=== PATIENT | male | born 1990 | race Caucasian/White ===

== ENCOUNTER 2018-07-13 11:04 | Emergency (ER) | payer OTHER ==
[2018-07-13 11:18] VITALS: RESP 18
--- NOTE | 2018-07-13 12:10 | ED ---
Psych HPI - General Chief Complaint: Psychiatric Symptoms Stated Complaint: suicidal Time Seen by Provider: 07/13/18 11:25 Source: patient, EMS, RN notes reviewed, old records reviewed Mode of arrival: EMS - History of Present Illness Initial Comments: 28-year-old male presenting to complete a suicidal statement. Patient was brought in via police escort. Apparently Patient states that he wanted to leave this place permanent". Patient states that he was referring to his parents house. He states that his parents misconstrued his statement and thought that he was making a suicidal statement. Patient states that he has had a history of substance abuse. Recently started on Suboxone. - Related Data Home Medications Medication Instructions Recorded Confirmed Buprenorphine HCl/Naloxone HCl 1 film SL DAILY 07/13/18 07/13/18 [Suboxone 8 mg-2 mg Sl Film] Allergies Allergy/AdvReac Type Severity Reaction Status Date / Time amoxicillin Allergy Unknown Verified 07/13/18 11:20 Review of Systems ROS Statement: Those systems with pertinent positive or pertinent negative responses have been documented in the HPI. ROS Other: All systems not noted in ROS Statement are negative. Past Medical History Past Medical History: No Reported History History of Any Multi-Drug Resistant Organisms: None Reported Past Surgical History: No Surgical Hx Reported Past Psychological History: No Psychological Hx Reported Smoking Status: Current every day smoker Past Alcohol Use History: Rare Past Drug Use History: Heroin General Exam - General Exam Comments Initial Comments: This is a 28-year-old male. Alert and oriented. No significant distress. General: Well appearing, well nourished, in no distress. Oriented x 3, normal mood and affect . Ambulating without difficulty. Skin: Good turgor, no rash, unusual bruising or prominent lesions Hair: Normal texture and distribution. HEENT: Head: Normocephalic, atraumatic, no visible or palpable masses, depressions, or scaring. Eyes: Visual acuity intact, conjunctiva clear, sclera non-icteric, EOM intact, PERRL. Ears: EACs clear, TMs translucent & cone of light visualized. hearing intact. Nose: No external lesions, mucosa non-inflamed, septum and turbinates normal Mouth: Mucous membranes moist, no mucosal lesions. Teeth/Gums: No obvious caries or periodontal disease. No gingival inflammation or significant resorption. Pharynx: Mucosa non-inflamed, no tonsillar hypertrophy or exudate Neck: Supple, without lesions, bruits, or adenopathy, thyroid non-enlarged and non-tender Heart: No cardiomegaly or thrills; regular rate and rhythm, no murmur or gallop Lungs: Clear to auscultation and percussion Abdomen: Bowel sounds normal, no tenderness, organomegaly, masses, or hernia Back: Spine normal without deformity or tenderness, no CVA tenderness Rectal: Normal sphincter tone, no hemorrhoids or masses palpable Extremities: No amputations or deformities, cyanosis, edema or varicosities, peripheral pulses intact Musculoskeletal: Normal gait and station. No misalignment, asymmetry, crepitation, defects, tenderness, masses, effusions, decreased range of motion, instability, atrophy or abnormal strength or tone in the head, neck, spine, ribs , pelvis or extremities. Neurologic: CN 2-12 normal. Sensation to pain, touch, and proprioception normal. DTRs normal in upper and lower extremities. No pathologic reflexes. Psychiatric: Oriented X3, intact recent and remote memory, judgment and insight , normal mood and affect. Patient reports depression, denies suicidal ideation. Reports family made a mistake in his statement. Patient plans to start a new job. Limitations: no limitations Course Vital Signs 07/13/18 07/13/18 11:14 13:28 Temperature 98.4 F 98.2 F Pulse Rate 97 91 Respiratory 18 18 Rate Blood Pressure 134/90 132/68 O2 Sat by Pulse 98 98 Oximetry Medical Decision Making - Medical Decision Making 28-year-old male presents department with family for concern for suicidal ideation. Patient reports that he wanted to leave this place per me". He was referring to his family's house. Patient states that he has been doing substance abuse. Recent start Suboxone. He states he is nontender to return to heroin use. He reports he is plans for future once in a new job this week. Patient was evaluated by EPS. They deem the Patient suicidal. The Patient outpatient referrals for counseling services. Patient has close follow-up with his counselor discussed return parameters. Patient understand treatment plan will comply. - Lab Data Lab Results 07/13/18 Range/Units 12:01 Urine Opiates Screen Detected H (NotDetected) Ur Oxycodone Screen Not Detected (NotDetected) Urine Methadone Screen Not Detected (NotDetected) Ur Propoxyphene Screen Not Detected (NotDetected) Ur Barbiturates Screen Not Detected (NotDetected) U Tricyclic Antidepress Not Detected (NotDetected) Ur Phencyclidine Scrn Not Detected (NotDetected) Ur Amphetamines Screen Detected H (NotDetected) U Methamphetamines Scrn Detected H (NotDetected) U Benzodiazepines Scrn Not Detected (NotDetected) Urine Cocaine Screen Detected H (NotDetected) U Marijuana (THC) Screen Detected H (NotDetected) Disposition Clinical Impression: Depression Disposition: HOME SELF-CARE Condition: Good Instructions: Depression (ED) Additional Instructions: Patient is advised is followed with outpatient services. Return to emergency department if any alarming signs or symptoms occur. Is patient prescribed a controlled substance at d/c from ED?: No Referrals: None,Stated [Primary Care Provider] - 1-2 days Brielle De La Garza MD [STAFF PHYSICIAN] - 1-2 days Time of Disposition: 13:03
[2018-07-13 12:43] LABS: Amphetamine Screen,Urine Detected (NotDetected); Barbiturate Screen,Urine Not Detected (NotDetected); Benzodiazepines Screen,Urine Not Detected (NotDetected); Cocaine Screen,Urine Detected (NotDetected); Methadone Screen, Urine Not Detected (NotDetected); Opiate Screen,Urine Detected (NotDetected); Oxycodone Screen, Urine Not Detected (NotDetected); Phencyclidine Screen,Urine Not Detected (NotDetected); Tricyclic Antidepressant,Urine Not Detected (NotDetected); Urn Cannabinoid Scrn Detected (NotDetected)
[2018-07-13 13:30] VITALS: BP 132/68; PULSE 91; TEMP 98.2
== END 2018-07-13 13:28 | disposition home or self-care (01) ==
LOC: EC 11:04
DX: F32.9 Major depressive disorder, single episode, unspecified (principal); F11.10 Opioid abuse, uncomplicated; F17.200 Nicotine dependence, unspecified, uncomplicated; Z79.899 Other long term (current) drug therapy; Z88.0 Allergy status to penicillin
CPT/HCPCS: 80306; 82075; 99285

== ENCOUNTER 2020-01-23 21:11 | Emergency (ER) | payer OTHER ==
[2020-01-23 21:16] VITALS: BP 138/109; PULSE 136; RESP 18; TEMP 100.7
[2020-01-23] MEDS ORDERED: IBUPROFEN 600 MG TAB PO STA (21:19)
[2020-01-23] MEDS ORDERED: SODIUM CHLORIDE 0.9% 1,000 ML IV STA (21:19)
[2020-01-23] MEDS ORDERED: LORazepam 2 MG/ML INJ IV STA (21:19)
[2020-01-23] MEDS ORDERED: ACETAMINOPHEN TAB 500 MG TAB PO STA (21:19)
[2020-01-23] MEDS ORDERED: SODIUM CHLORIDE 0.9% 500 ML 500 ML IV STA (21:19)
--- NOTE | 2020-01-23 21:21 | ED ---
Psych HPI - General Chief Complaint: Psychiatric Symptoms Stated Complaint: mental health Time Seen by Provider: 01/23/20 21:18 Source: patient, police, RN notes reviewed, old records reviewed Mode of arrival: ambulatory - History of Present Illness Initial Comments: This is a 29-year-old male here for evaluation. Patient presents today for evaluation of possibly having hallucinations outpatient basis he is hearing voices is not feeling, or suicidal. At this point upon arrival here patient states he feels was not currently hearing voices looking for some follow-up resources regarding psychiatric illness. Patient does take psychiatric meds at her baseline. 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 No recent travel history or sick contacts. Patient does admit to be having a little fever lately and feeling a little while. MD Complaint: altered mental status, other (Hearing voices) Associated Psychiatric Symptoms: none, racing thoughts History of same: Yes Quality: constant Improves With: none Worsens With: none Context: recent drug abuse Associated Symptoms: denies other symptoms Treatments Prior to Arrival: placed on mental health hold If Self Harm: admits thoughts of self harm - Related Data Home Medications Medication Instructions Recorded Confirmed Buprenorphine HCl/Naloxone HCl 1 film SL DAILY 07/13/18 07/13/18 [Suboxone 8 mg-2 mg Sl Film] Allergies Allergy/AdvReac Type Severity Reaction Status Date / Time amoxicillin Allergy Unknown Verified 01/23/20 21:16 Review of Systems ROS Statement: Those systems with pertinent positive or pertinent negative responses have been documented in the HPI. ROS Other: All systems not noted in ROS Statement are negative. Past Medical History Past Medical History: No Reported History History of Any Multi-Drug Resistant Organisms: None Reported Past Surgical History: No Surgical Hx Reported Past Psychological History: Schizophrenia Smoking Status: Current every day smoker Past Alcohol Use History: Rare Past Drug Use History: Heroin General Exam Limitations: no limitations, altered mental status General appearance: alert, in no apparent distress, anxious, in distress Head exam: Present: atraumatic, normocephalic, normal inspection Eye exam: Present: normal appearance, PERRL, EOMI. Absent: scleral icterus, conjunctival injection, periorbital swelling ENT exam: Present: normal exam, mucous membranes dry Neck exam: Present: normal inspection. Absent: tenderness, meningismus, lymphadenopathy Respiratory exam: Present: normal lung sounds bilaterally. Absent: respiratory distress, wheezes, rales, rhonchi, stridor Cardiovascular Exam: Present: normal rhythm, tachycardia, normal heart sounds. Absent: systolic murmur, diastolic murmur, rubs, gallop, clicks GI/Abdominal exam: Present: soft, normal bowel sounds. Absent: distended, tenderness, guarding, rebound, rigid Extremities exam: Present: normal inspection, full ROM, normal capillary refill. Absent: tenderness, pedal edema, joint swelling, calf tenderness Back exam: Present: normal inspection Neurological exam: Present: alert, oriented X3, CN II-XII intact Psychiatric exam: Present: normal affect, normal mood Skin exam: Present: warm, dry, intact, normal color. Absent: rash Course Vital Signs 01/23/20 21:12 Temperature 100.7 F H Pulse Rate 136 H Respiratory 18 Rate Blood Pressure 138/109 O2 Sat by Pulse 99 Oximetry - Reevaluation(s) Reevaluation #1: 01/23/20 23:18 Medical recommended was reviewed Reevaluation #2: 01/23/20 23:18 Patient has no homicidal or suicidal Reevaluation #3: 01/23/20 23:18 Patient given discharge asking for resources Medical Decision Making - Medical Decision Making 29 Male here for evaluation patient having some auditory delusions. No homicidal or suicidal asking for some follow-up regarding his symptoms. Patient given follow-up and can be discharged home - Lab Data Result diagrams: 01/23/20 22:31 01/23/20 22:31 Lab Results 01/23/20 01/23/20 01/23/20 Range/Units 22:31 22:31 22:31 WBC 4.2 (3.8-10.6) k/uL RBC 4.96 (4.30-5.90) m/uL Hgb 14.8 (13.0-17.5) gm/dL Hct 45.1 (39.0-53.0) % MCV 91.0 (80.0-100.0) fL MCH 29.8 (25.0-35.0) pg MCHC 32.7 (31.0-37.0) g/dL RDW 12.9 (11.5-15.5) % Plt Count 159 (150-450) k/uL Neutrophils % 70 % Lymphocytes % 17 % Monocytes % 9 % Eosinophils % 1 % Basophils % 1 % Neutrophils # 3.0 (1.3-7.7) k/uL Lymphocytes # 0.7 L (1.0-4.8) k/uL Monocytes # 0.4 (0-1.0) k/uL Eosinophils # 0.0 (0-0.7) k/uL Basophils # 0.0 (0-0.2) k/uL Sodium 136 L (137-145) mmol/L Potassium 3.9 (3.5-5.1) mmol/L Chloride 100 (98-107) mmol/L Carbon Dioxide 26 (22-30) mmol/L Anion Gap 10 mmol/L BUN 11 (9-20) mg/dL Creatinine 0.77 (0.66-1.25) mg/dL Est GFR (CKD-EPI)AfAm >90 (>60 ml/min/1.73 sqM) Est GFR (CKD-EPI)NonAf >90 (>60 ml/min/1.73 sqM) Glucose 80 (74-99) mg/dL Plasma Lactic Acid Robert (0.7-2.0) mmol/L Calcium 9.3 (8.4-10.2) mg/dL Total Bilirubin 0.4 (0.2-1.3) mg/dL AST 28 (17-59) U/L ALT 12 (4-49) U/L Alkaline Phosphatase 65 (38-126) U/L Total Protein 7.6 (6.3-8.2) g/dL Albumin 4.4 (3.5-5.0) g/dL Urine Color Yellow Urine Appearance Clear (Clear) Urine pH 7.0 (5.0-8.0) Ur Specific Gibson 1.023 (1.001-1.035) Urine Protein 1+ H (Negative) Urine Glucose (UA) Negative (Negative) Urine Ketones 1+ H (Negative) Urine Blood Negative (Negative) Urine Nitrite Negative (Negative) Urine Bilirubin Negative (Negative) Urine Urobilinogen 4.0 (<2.0) mg/dL Ur Leukocyte Esterase Trace H (Negative) Urine RBC 1 (0-5) /hpf Urine WBC 1 (0-5) /hpf Ur Squamous Epith Cells <1 (0-4) /hpf Urine Bacteria Rare H (None) /hpf Urine Mucus Moderate H (None) /hpf Salicylates <1.0 mg/dL Urine Opiates Screen Not Detected (NotDetected) Ur Oxycodone Screen Not Detected (NotDetected) Urine Methadone Screen Detected H (NotDetected) Ur Propoxyphene Screen Not Detected (NotDetected) Acetaminophen <10.0 ug/mL Ur Barbiturates Screen Not Detected (NotDetected) U Tricyclic Antidepress Not Detected (NotDetected) Ur Phencyclidine Scrn Not Detected (NotDetected) Ur Amphetamines Screen Detected H (NotDetected) U Methamphetamines Scrn Detected H (NotDetected) U Benzodiazepines Scrn Not Detected (NotDetected) Urine Cocaine Screen Not Detected (NotDetected) U Marijuana (THC) Screen Detected H (NotDetected) Serum Alcohol <10 mg/dL 01/23/20 Range/Units 22:31 WBC (3.8-10.6) k/uL RBC (4.30-5.90) m/uL Hgb (13.0-17.5) gm/dL Hct (39.0-53.0) % MCV (80.0-100.0) fL MCH (25.0-35.0) pg MCHC (31.0-37.0) g/dL RDW (11.5-15.5) % Plt Count (150-450) k/uL Neutrophils % % Lymphocytes % % Monocytes % % Eosinophils % % Basophils % % Neutrophils # (1.3-7.7) k/uL Lymphocytes # (1.0-4.8) k/uL Monocytes # (0-1.0) k/uL Eosinophils # (0-0.7) k/uL Basophils # (0-0.2) k/uL Sodium (137-145) mmol/L Potassium (3.5-5.1) mmol/L Chloride (98-107) mmol/L Carbon Dioxide (22-30) mmol/L Anion Gap mmol/L BUN (9-20) mg/dL Creatinine (0.66-1.25) mg/dL Est GFR (CKD-EPI)AfAm (>60 ml/min/1.73 sqM) Est GFR (CKD-EPI)NonAf (>60 ml/min/1.73 sqM) Glucose (74-99) mg/dL Plasma Lactic Acid Robert 0.7 (0.7-2.0) mmol/L Calcium (8.4-10.2) mg/dL Total Bilirubin (0.2-1.3) mg/dL AST (17-59) U/L ALT (4-49) U/L Alkaline Phosphatase (38-126) U/L Total Protein (6.3-8.2) g/dL Albumin (3.5-5.0) g/dL Urine Color Urine Appearance (Clear) Urine pH (5.0-8.0) Ur Specific Gibson (1.001-1.035) Urine Protein (Negative) Urine Glucose (UA) (Negative) Urine Ketones (Negative) Urine Blood (Negative) Urine Nitrite (Negative) Urine Bilirubin (Negative) Urine Urobilinogen (<2.0) mg/dL Ur Leukocyte Esterase (Negative) Urine RBC (0-5) /hpf Urine WBC (0-5) /hpf Ur Squamous Epith Cells (0-4) /hpf Urine Bacteria (None) /hpf Urine Mucus (None) /hpf Salicylates mg/dL Urine Opiates Screen (NotDetected) Ur Oxycodone Screen (NotDetected) Urine Methadone Screen (NotDetected) Ur Propoxyphene Screen (NotDetected) Acetaminophen ug/mL Ur Barbiturates Screen (NotDetected) U Tricyclic Antidepress (NotDetected) Ur Phencyclidine Scrn (NotDetected) Ur Amphetamines Screen (NotDetected) U Methamphetamines Scrn (NotDetected) U Benzodiazepines Scrn (NotDetected) Urine Cocaine Screen (NotDetected) U Marijuana (THC) Screen (NotDetected) Serum Alcohol mg/dL Disposition Clinical Impression: Acute anxiety Disposition: HOME SELF-CARE Condition: Good Instructions (If sedation given, give patient instructions): Hallucinations (ED) Is patient prescribed a controlled substance at d/c from ED?: No Referrals: Felix Long DO [Primary Care Provider] - 1-2 days
[2020-01-23 22:47] LABS: Basophils % (A) 1 %; Eosinophils % (A) 1 %; HCT 45.1 % (39.0-53.0); HGB 14.8 gm/dL (13.0-17.5); Lymphocytes # (A) 0.7 k/uL (1.0-4.8); Lymphocytes % (A) 17 %; MCH 29.8 pg (25.0-35.0); MCHC 32.7 g/dL (31.0-37.0); Mean Platelet Volume 7.8; Monocytes # (A) 0.4 k/uL (0-1.0); Monocytes % (A) 9 %; Neutrophils % (A) 70 %; Platelet Count 159 k/uL (150-450); RBC 4.96 m/uL (4.30-5.90); RDW 12.9 % (11.5-15.5); WBC 4.2 k/uL (3.8-10.6)
[2020-01-23 22:50] LABS: Appearance,Urine Clear (Clear); Bacteria,Urine Rare /hpf; Bilirubin,Urine Negative (Negative); Blood,Urine Negative (Negative); Color,Urine Yellow; Glucose,Urine (UA) Negative (Negative); Ketones,Urine 1+ (Negative); Leukocyte Esterase,Urine Trace (Negative); Mucus,Urine Moderate /hpf; Nitrite,Urine Negative (Negative); Protein,Urine 1+ (Negative); RBC,Urine 1 /hpf (0-5); Specific Gravity,Urine 1.023 (1.001-1.035); Squamous Epithelial Cell,Urine <1 /hpf (0-4); WBC,Urine 1 /hpf (0-5)
--- NOTE | 2020-01-23 22:52 | XR ---
EXAMINATION TYPE: XR chest 2V DATE OF EXAM: 01/23/2020 COMPARISON: NONE HISTORY: Cough TECHNIQUE: FINDINGS: Heart and mediastinum are normal. Lungs are clear. Diaphragm is normal. Bony thorax appears normal. IMPRESSION: Normal chest.
[2020-01-23 23:03] LABS: Amphetamine Screen,Urine Detected (NotDetected); Barbiturate Screen,Urine Not Detected (NotDetected); Benzodiazepines Screen,Urine Not Detected (NotDetected); Cocaine Screen,Urine Not Detected (NotDetected); Methadone Screen, Urine Detected (NotDetected); Opiate Screen,Urine Not Detected (NotDetected); Oxycodone Screen, Urine Not Detected (NotDetected); Phencyclidine Screen,Urine Not Detected (NotDetected); Tricyclic Antidepressant,Urine Not Detected (NotDetected); Urn Cannabinoid Scrn Detected (NotDetected)
[2020-01-23 23:04] LABS: ALT 12 U/L (4-49); AST 28 U/L (17-59); Acetaminophen <10.0 ug/mL; African American GFR (CKD) >90 (>60 ml/min/1.73 sqM); Albumin 4.4 g/dL (3.5-5.0); Alcohol <10 mg/dL; Alkaline Phosphatase 65 U/L (38-126); Anion Gap 10 mmol/L; Blood Urea Nitrogen 11 mg/dL (9-20); Calcium 9.3 mg/dL (8.4-10.2); Carbon Dioxide 26 mmol/L (22-30); Chloride 100 mmol/L (98-107); Glucose 80 mg/dL (74-99); Non-African American GFR(CKD) >90 (>60 ml/min/1.73 sqM); Potassium 3.9 mmol/L (3.5-5.1); Salicylate <1.0 mg/dL; Sodium 136 mmol/L (137-145); Total Bilirubin 0.4 mg/dL (0.2-1.3); Total Protein 7.6 g/dL (6.3-8.2)
== END 2020-01-23 23:40 | disposition home or self-care (01) ==
LOC: EC 21:11
DX: F41.9 Anxiety disorder, unspecified (principal); F22 Delusional disorders; R50.9 Fever, unspecified; F17.200 Nicotine dependence, unspecified, uncomplicated; Z79.899 Other long term (current) drug therapy; Z88.0 Allergy status to penicillin
CPT/HCPCS: 82075; 36415; 80053; 83605; 85025; 81001; 87040; 80306; 83520; 87502; 71046; 99285; 96374; 96361; G0480 ×2; J2060; 80320; 80329

== ENCOUNTER 2020-01-24 21:48 | Inpatient (IN) | payer MEDICAID, OTHER ==
--- NOTE | 2020-01-24 22:08 | ED ---
General Adult HPI - General Chief complaint: Psychiatric Symptoms Stated complaint: mental health Time Seen by Provider: 01/24/20 21:54 Source: patient, police Mode of arrival: ambulatory Limitations: no limitations - History of Present Illness Initial comments: Dictation was produced using [employer] dictation software. please excuse any grammatical, word or spelling errors. Chief Complaint: 29-year-old recent transgender presents with agitation. History of Present Illness: 29-year-old male/female. She was born a male however is transitioning to be a female. She was in a confrontation with her mother at home when she became emotional through a phone towards the fireplace. Was called and patient was brought to the emergency department. Patient was seen here yesterday for similar issue. Patient states she is here voluntarily f eels like she needs to talk to someone. She feels anxious. She was seen in the emergency department released. She believes that she would benefit from more frequent counseling. No homicidal or suicidal ideation. No visual auditory hallucinations. no medical complaints. The ROS documented in this emergency department record has been reviewed and confirmed by me. Those systems with pertinent positive or negative responses have been documented in the HPI. All other systems are other negative and/or noncontributory. PHYSICAL EXAM: General Impression: Alert and oriented x3, not in acute distress HEENT: Normocephalic atraumatic, extra-ocular movements intact, pupils equal and reactive to light bilaterally, mucous membranes moist. Cardiovascular: Heart regular rate and rhythm, S1&S2 audible, no murmurs, rubs or gallops Chest: Lungs clear to auscultation bilaterally, no rhonchi, no wheeze, no rales Abdomen: Bowel sounds present, abdomen soft, non-tender, non-distended, no organomegaly Musculoskeletal: Pulses present and equal in all extremities, no peripheral edema Motor: no focal deficits noted Neurological: CN II-XII grossly intact, no focal motor or sensory deficits noted Skin: Intact with no visualized rashes Psych: Anxious ED course: 29-year-old born a male who is transitioning to become a female presents with request for psychiatric evaluation. She reports that she feels anxious. As upon arrival shows heart rate 121 cumbersome vital signs within acceptable limits. Patient medically cleared for psych evaluation. Patient was evaluated by psychiatry and recommended inpatient psychiatric transfer. - Related Data Home Medications Medication Instructions Recorded Confirmed Buprenorphine HCl/Naloxone HCl 1 film SL DAILY 07/13/18 01/25/20 [Suboxone 8 mg-2 mg Sl Film] Allergies Allergy/AdvReac Type Severity Reaction Status Date / Time amoxicillin Allergy Rash/Hives Verified 01/25/20 13:16 Review of Systems ROS Statement: Those systems with pertinent positive or pertinent negative responses have been documented in the HPI. ROS Other: All systems not noted in ROS Statement are negative. Past Medical History Past Medical History: No Reported History History of Any Multi-Drug Resistant Organisms: None Reported Past Surgical History: Appendectomy Past Psychological History: Anxiety, Depression, Schizophrenia Smoking Status: Current every day smoker Past Alcohol Use History: Rare Past Drug Use History: Heroin - Past Family History Mother Additional Family Medical History / Comment(s): heart disease Father Family Medical History: No Reported History General Exam Limitations: no limitations Course Vital Signs 01/24/20 01/24/20 01/25/20 21:50 23:57 06:31 Temperature 99.2 F 98.4 F Pulse Rate 121 H 90 80 Pulse Rate [ Right Pulse Oximetery] Respiratory 20 18 18 Rate Blood Pressure 134/85 118/75 92/55 Blood Pressure [Right Arm Sitting] O2 Sat by Pulse 98 98 96 Oximetry 01/25/20 01/25/20 12:00 12:40 Temperature 98.2 F 98.2 F Pulse Rate 85 Pulse Rate [ 73 Right Pulse Oximetery] Respiratory 18 18 Rate Blood Pressure 103/70 Blood Pressure 113/70 [Right Arm Sitting] O2 Sat by Pulse 98 100 Oximetry Medical Decision Making - Lab Data Result diagrams: 01/25/20 00:17 01/26/20 07:47 Lab Results 01/24/20 01/24/20 01/25/20 Range/Units 23:25 23:25 00:17 WBC 4.0 (3.8-10.6) k/uL RBC 4.56 (4.30-5.90) m/uL Hgb 13.6 (13.0-17.5) gm/dL Hct 40.7 (39.0-53.0) % MCV 89.1 (80.0-100.0) fL MCH 29.9 (25.0-35.0) pg MCHC 33.5 (31.0-37.0) g/dL RDW 12.9 (11.5-15.5) % Plt Count 159 (150-450) k/uL Neutrophils % (Manual) 64 % Band Neutrophils % 5 % Lymphocytes % (Manual) 24 % Monocytes % (Manual) 6 % Eosinophils % (Manual) 1 % Neutrophils # (Manual) 2.70 (1.3-7.7) k/uL Lymphocytes # (Manual) 0.96 L (1.0-4.8) k/uL Monocytes # (Manual) 0.24 (0-1.0) k/uL Eosinophils # (Manual) 0.04 (0-0.7) k/uL Nucleated RBCs 0 (0-0) /100 WBC Manual Slide Review Performed Reactive Lymphocytes Sodium (137-145) mmol/L Potassium (3.5-5.1) mmol/L Chloride (98-107) mmol/L Carbon Dioxide (22-30) mmol/L Anion Gap mmol/L BUN (9-20) mg/dL Creatinine (0.66-1.25) mg/dL Est GFR (CKD-EPI)AfAm (>60 ml/min/1.73 sqM) Est GFR (CKD-EPI)NonAf (>60 ml/min/1.73 sqM) Glucose (74-99) mg/dL Calcium (8.4-10.2) mg/dL Total Bilirubin (0.2-1.3) mg/dL AST (17-59) U/L ALT (4-49) U/L Alkaline Phosphatase (38-126) U/L Total Protein (6.3-8.2) g/dL Albumin (3.5-5.0) g/dL Urine Color Yellow Urine Appearance Clear (Clear) Urine pH 6.0 (5.0-8.0) Ur Specific [place] 1.026 (1.001-1.035) Urine Protein 1+ H (Negative) Urine Glucose (UA) Negative (Negative) Urine Ketones Negative (Negative) Urine Blood Negative (Negative) Urine Nitrite Negative (Negative) Urine Bilirubin Negative (Negative) Urine Urobilinogen 2.0 (<2.0) mg/dL Ur Leukocyte Esterase Negative (Negative) Urine RBC <1 (0-5) /hpf Urine WBC 1 (0-5) /hpf Ur Squamous Epith Cells <1 (0-4) /hpf Urine Bacteria Rare H (None) /hpf Urine Mucus Occasional H (None) /hpf Urine Opiates Screen Not Detected (NotDetected) Ur Oxycodone Screen Not Detected (NotDetected) Urine Methadone Screen Detected H (NotDetected) Ur Propoxyphene Screen Not Detected (NotDetected) Ur Barbiturates Screen Not Detected (NotDetected) U Tricyclic Antidepress Not Detected (NotDetected) Ur Phencyclidine Scrn Not Detected (NotDetected) Ur Amphetamines Screen Detected H (NotDetected) U Methamphetamines Scrn Detected H (NotDetected) U Benzodiazepines Scrn Detected H (NotDetected) Urine Cocaine Screen Not Detected (NotDetected) U Marijuana (THC) Screen Detected H (NotDetected) 01/25/20 Range/Units 00:17 WBC (3.8-10.6) k/uL RBC (4.30-5.90) m/uL Hgb (13.0-17.5) gm/dL Hct (39.0-53.0) % MCV (80.0-100.0) fL MCH (25.0-35.0) pg MCHC (31.0-37.0) g/dL RDW (11.5-15.5) % Plt Count (150-450) k/uL Neutrophils % (Manual) % Band Neutrophils % % Lymphocytes % (Manual) % Monocytes % (Manual) % Eosinophils % (Manual) % Neutrophils # (Manual) (1.3-7.7) k/uL Lymphocytes # (Manual) (1.0-4.8) k/uL Monocytes # (Manual) (0-1.0) k/uL Eosinophils # (Manual) (0-0.7) k/uL Nucleated RBCs (0-0) /100 WBC Manual Slide Review Reactive Lymphocytes Sodium 134 L (137-145) mmol/L Potassium 4.5 (3.5-5.1) mmol/L Chloride 101 (98-107) mmol/L Carbon Dioxide 28 (22-30) mmol/L Anion Gap 5 mmol/L BUN 14 (9-20) mg/dL Creatinine 0.67 (0.66-1.25) mg/dL Est GFR (CKD-EPI)AfAm >90 (>60 ml/min/1.73 sqM) Est GFR (CKD-EPI)NonAf >90 (>60 ml/min/1.73 sqM) Glucose 89 (74-99) mg/dL Calcium 8.4 (8.4-10.2) mg/dL Total Bilirubin 0.2 (0.2-1.3) mg/dL AST 26 (17-59) U/L ALT 12 (4-49) U/L Alkaline Phosphatase 52 (38-126) U/L Total Protein 6.7 (6.3-8.2) g/dL Albumin 3.8 (3.5-5.0) g/dL Urine Color Urine Appearance (Clear) Urine pH (5.0-8.0) Ur Specific [place] (1.001-1.035) Urine Protein (Negative) Urine Glucose (UA) (Negative) Urine Ketones (Negative) Urine Blood (Negative) Urine Nitrite (Negative) Urine Bilirubin (Negative) Urine Urobilinogen (<2.0) mg/dL Ur Leukocyte Esterase (Negative) Urine RBC (0-5) /hpf Urine WBC (0-5) /hpf Ur Squamous Epith Cells (0-4) /hpf Urine Bacteria (None) /hpf Urine Mucus (None) /hpf Urine Opiates Screen (NotDetected) Ur Oxycodone Screen (NotDetected) Urine Methadone Screen (NotDetected) Ur Propoxyphene Screen (NotDetected) Ur Barbiturates Screen (NotDetected) U Tricyclic Antidepress (NotDetected) Ur Phencyclidine Scrn (NotDetected) Ur Amphetamines Screen (NotDetected) U Methamphetamines Scrn (NotDetected) U Benzodiazepines Scrn (NotDetected) Urine Cocaine Screen (NotDetected) U Marijuana (THC) Screen (NotDetected) Disposition Clinical Impression: Psychosis Disposition: TRANSFER TO PSYCH HOSP/UNIT Condition: Fair Time of Disposition: 12:41
[2020-01-24 23:49] LABS: Appearance,Urine Clear (Clear); Bacteria,Urine Rare /hpf; Bilirubin,Urine Negative (Negative); Blood,Urine Negative (Negative); Color,Urine Yellow; Glucose,Urine (UA) Negative (Negative); Ketones,Urine Negative (Negative); Leukocyte Esterase,Urine Negative (Negative); Mucus,Urine Occasional /hpf; Nitrite,Urine Negative (Negative); Protein,Urine 1+ (Negative); RBC,Urine <1 /hpf (0-5); Specific Gravity,Urine 1.026 (1.001-1.035); Squamous Epithelial Cell,Urine <1 /hpf (0-4); WBC,Urine 1 /hpf (0-5)
[2020-01-25 00:06] LABS: Cocaine Screen,Urine Not Detected (NotDetected); Phencyclidine Screen,Urine Not Detected (NotDetected)
[2020-01-25 00:07] LABS: Amphetamine Screen,Urine Detected (NotDetected); Barbiturate Screen,Urine Not Detected (NotDetected); Benzodiazepines Screen,Urine Detected (NotDetected); Methadone Screen, Urine Detected (NotDetected); Opiate Screen,Urine Not Detected (NotDetected); Oxycodone Screen, Urine Not Detected (NotDetected); Tricyclic Antidepressant,Urine Not Detected (NotDetected); Urn Cannabinoid Scrn Detected (NotDetected)
[2020-01-25 00:47] LABS: HCT 40.7 % (39.0-53.0); HGB 13.6 gm/dL (13.0-17.5); MCH 29.9 pg (25.0-35.0); MCHC 33.5 g/dL (31.0-37.0); MCV 89.1 fL (80.0-100.0); Mean Platelet Volume 8.1; Platelet Count 159 k/uL (150-450); RBC 4.56 m/uL (4.30-5.90); RDW 12.9 % (11.5-15.5)
[2020-01-25 00:56] LABS: ALT 12 U/L (4-49); AST 26 U/L (17-59); African American GFR (CKD) >90 (>60 ml/min/1.73 sqM); Albumin 3.8 g/dL (3.5-5.0); Alkaline Phosphatase 52 U/L (38-126); Anion Gap 5 mmol/L; Blood Urea Nitrogen 14 mg/dL (9-20); Calcium 8.4 mg/dL (8.4-10.2); Carbon Dioxide 28 mmol/L (22-30); Chloride 101 mmol/L (98-107); Glucose 89 mg/dL (74-99); Non-African American GFR(CKD) >90 (>60 ml/min/1.73 sqM); Potassium 4.5 mmol/L (3.5-5.1); Sodium 134 mmol/L (137-145); Total Bilirubin 0.2 mg/dL (0.2-1.3); Total Protein 6.7 g/dL (6.3-8.2)
[2020-01-25 01:21] LABS: Band Neutrophils % 5 %; Eosinophils # (M) 0.04 k/uL (0-0.7); Lymphocytes # (M) 0.96 k/uL (1.0-4.8); Monocytes # (M) 0.24 k/uL (0-1.0); Neutrophils % (M) 64 %; Nucleated Red Blood Cells 0 /100 WBC (0-0); Total Cells Counted 100
[2020-01-25] MEDS ORDERED: MAGNESIUM HYDROXIDE 2,400 MG/10 ML CUP PO PRN (13:42)
[2020-01-25] MEDS ORDERED: ZIPRASIDONE 20 MG VIAL IM PRN (13:42)
[2020-01-25] MEDS ORDERED: ACETAMINOPHEN TAB 325 MG TAB PO PRN (13:42)
[2020-01-25] MEDS ORDERED: LORazepam 1 MG TAB PO PRN (13:42)
[2020-01-25] MEDS ORDERED: MAG HYDROX/AL HYDROX/SIMETH 30 ML CUP PO PRN (13:42)
[2020-01-25] MEDS ORDERED: LOPERAMIDE 2 MG CAP PO PRN (13:51)
[2020-01-25] MEDS ORDERED: IBUPROFEN 400 MG TAB PO PRN (13:52)
[2020-01-25] MEDS ORDERED: ONDANSETRON 4 MG TAB PO PRN (13:53)
[2020-01-25] MEDS ORDERED: traZODone HCL 50 MG TAB PO PRN (13:55)
[2020-01-25] MEDS ORDERED: hydrOXYzine PAMOATE 25 MG CAP PO PRN (13:59)
[2020-01-25] MEDS ORDERED: OLANZapine ODT 5 MG TAB PO PRN (14:00)
[2020-01-25] MEDS ORDERED: cloNIDine HCL 0.1 MG TAB PO PRN (14:01)
[2020-01-25] MEDS ORDERED: cloNIDine HCL 0.2 MG TAB PO PRN (14:17)
--- NOTE | 2020-01-25 15:13 | P.HPMEDMHU ---
History of Present Illness H&P Date: 01/25/20 Chief Complaint: anxiety and depression Patient is a 29-year-old assigned male at who is currently transitioning to female, Her name is Sharri, preferred pro-noun she/her. She presented to the emergency department due to increased anxiety and depression. She has been rocael chriss on the mental health unit. Hx of heroin abuse now on methadone therapy, last relapse was in Nov 2019, following at a methadone clinic. She has been in her normal state of health recently. No recent cough, cold, fever, or flu. She has not yet started hormone replacement or medical therapy to assist with her transition. No surgical intervention. She has just started to feel comfortable with identifying as Sharri in public. She does take lexapro. She states most of her anxiety and mental health issues relate to her identification as female. Review of Systems Pertinent positives and negatives as discussed in HPI, a complete review of systems was performed and all other systems are negative. Past Medical History Past Medical History: No Reported History History of Any Multi-Drug Resistant Organisms: None Reported Past Surgical History: Appendectomy Past Anesthesia/Blood Transfusion Reactions: No Reported Reaction Smoking Status: Current every day smoker (1/2 -1 PPD) Past Alcohol Use History: None Reported Additional Drug Use History / Comment(s): Hx of herion in the past, on methadone last IVDA was Nov 2019 - Past Family History Mother Additional Family Medical History / Comment(s): heart disease Father Family Medical History: No Reported History Medications and Allergies Home Medications Medication Instructions Recorded Confirmed Type Buprenorphine HCl/Naloxone HCl 1 film SL DAILY 07/13/18 07/13/18 History [Suboxone 8 mg-2 mg Sl Film] Allergies Allergy/AdvReac Type Severity Reaction Status Date / Time amoxicillin Allergy Rash/Hives Verified 01/25/20 13:16 Physical Exam Osteopathic Statement: *. No significant issues noted on an osteopathic structural exam other than those noted in the History and Physical/Consult. Vitals: Vital Signs Temp Pulse Pulse Resp BP BP Pulse Ox 01/25/20 12:40 98.2 F 73 18 113/70 100 01/25/20 12:00 98.2 F 85 18 103/70 98 01/25/20 06:31 98.4 F 80 18 92/55 96 01/24/20 23:57 90 18 118/75 98 01/24/20 21:50 99.2 F 121 H 20 134/85 98 Intake and Output 01/24/20 01/25/20 01/25/20 22:59 06:59 14:59 Other: Weight 77.111 kg 75.4 kg General: non toxic, no distress, appears at stated age, normal weight Derm: no unusual rashes/lesions no unusual ecchymoses, warm, dry Head: atraumatic, normocephalic, symmetric Eyes: EOMI, no lid lag, anicteric sclera, pupils equal round reactive to light ENT: Nose and ears atraumatic, no thrush, no pharyngeal erythema Neck: No thyromegaly, no cervical lymphadenopathy, trachea midline, supple Mouth: no lip lesion, mucus membranes moist Cardiovascular: S1S2 reg, no murmur, positive posterior tibial pulse bilateral, no edema, capillary refill less than 2 seconds Lungs: CTA bilateral, no rhonchi, no rales , no accessory muscle use Abdominal: soft, nontender to palpation, no guarding, normal bowel sounds Ext: no gross muscle atrophy, muscle strength 5 out of 5 in all 4 extremities grossly, no contractures, Neuro: CN II-XI grossly intact, light touch intact all 4 extremities, finger to nose within normal limits, Psych: Alert, oriented, appropriate affect Cranial Nerve Examination - Cranial Nerves Cranial Nerve II- Optic: Intact Cranial Nerve III- Oculomotor: Intact Cranial Nerve IV- Trochlear: Intact Cranial Nerve V- Trigeminal: Intact Cranial Nerve - Abducens: Intact Cranial Nerve VII- Facial: Intact Cranial Nerve VIII- Auditory: Intact Cranial Nerve IX- Glossopharyngeal: Intact Cranial Nerve X- Vagus: Intact Cranial Nerve XI- Accessory: Intact Cranial Nerve XII- Hypoglossal: Intact Results CBC & Chem 7: 01/25/20 00:17 01/25/20 00:17 Labs: Abnormal Lab Results - Last 24 Hours (Table) 01/24/20 01/24/20 01/25/20 Range/Units 23:25 23:25 00:17 Lymphocytes # (Manual) 0.96 L (1.0-4.8) k/uL Sodium (137-145) mmol/L Urine Protein 1+ H (Negative) Urine Bacteria Rare H (None) /hpf Urine Mucus Occasional H (None) /hpf Urine Methadone Screen Detected H (NotDetected) Ur Amphetamines Screen Detected H (NotDetected) U Methamphetamines Scrn Detected H (NotDetected) U Benzodiazepines Scrn Detected H (NotDetected) U Marijuana (THC) Screen Detected H (NotDetected) 01/25/20 Range/Units 00:17 Lymphocytes # (Manual) (1.0-4.8) k/uL Sodium 134 L (137-145) mmol/L Urine Protein (Negative) Urine Bacteria (None) /hpf Urine Mucus (None) /hpf Urine Methadone Screen (NotDetected) Ur Amphetamines Screen (NotDetected) U Methamphetamines Scrn (NotDetected) U Benzodiazepines Scrn (NotDetected) U Marijuana (THC) Screen (NotDetected) Thrombosis Risk Factor Assmnt - DVT/VTE Prophylaxis DVT/VTE Prophylaxis: Low risk, early ambulation encouraged Assessment and Plan Assessment: Drug abuse - denies street drugs - + for meth, + bezos, + methadone- prescribed - confirm methadone dosing - cessation of illicit drugs. Tobacco abuse - cessation - nicotine replacement Anxiety and depression - your psych management Transgender clinic information added to discharge tab at the request of the patient. Thank you for allowing us to participate in the care of this pleasant patient. Do not hesitate to contact us with questions. Someone can be reached from the [facility] hospitalist group all hours of the day at [phone] or via perfect serve.
[2020-01-25] MEDS: NICOTINE 7MG/24HR PATCH TRANSDERM SCH (15:47)
[2020-01-26 08:09] LABS: African American GFR (CKD) >90 (>60 ml/min/1.73 sqM); Anion Gap 6 mmol/L; Blood Urea Nitrogen 9 mg/dL (9-20); Calcium 8.6 mg/dL (8.4-10.2); Carbon Dioxide 30 mmol/L (22-30); Chloride 100 mmol/L (98-107); Glucose 98 mg/dL (74-99); Non-African American GFR(CKD) >90 (>60 ml/min/1.73 sqM); Potassium 4.1 mmol/L (3.5-5.1); Sodium 136 mmol/L (137-145)
[2020-01-26] MEDS: NICOTINE 7MG/24HR PATCH TRANSDERM SCH (09:00)
--- NOTE | 2020-01-26 12:22 | P.HP ---
Psychiatric H&P - . H&P Date: 01/26/20 History & Physical: IDENTIFYING Data: Héctor Hermosillo is a 29-year-old transgender female who likes to be called Tasha currently lives with his mother and stepfather, unemployed, has psychiatric history of depression and anxiety, and he reported no history of medical problems. The patient has been admitted to our inpatient psychiatric services after been transferred from [facility] ED and he was initially brought to the ED by the police after an altercation with her mother. The patient has been admitted on voluntary basis to our service. CHIEF COMPLAINT: "I have heart time to control my emotions." HISTORY OF PRESENT ILLNESS: As per ED note: " 29-year-old male/female. She was born a male however is transitioning to be a female. She was in a confrontation with her mother at home when she became emotional through a phone towards the fireplace. Was called and patient was brought to the emergency department. Patient was seen here yesterday for similar issue. Patient states she is here voluntarily feels like she needs to talk to someone. She feels anxious. She was seen in the emergency department released. She believes that she would benefit from more frequent counseling. No homicidal or suicidal ideation. No visual auditory hallucinations. no medical complaints." The patient was psychiatrically evaluated today. She reports has been feeling more irritable with outbursts of severe anger and rage lately. She reports day before admission she had a verbal altercation with her mother and she became very angry that she threw her mother phone and after that mom called the police so the patient left the house and was hiding at neighbors yard. Patient decided to go with the police and she came to the hospital for further evaluation. Patient admitted having severe mood swings "roller coaster mood" with the changes of her mood from being calm and "okay" to severe anger, agitation, and rage. She reports feeling not able to control her emotions lately and that caused her problem interacting with others. Patient denies any current symptoms of sleep or appetite disturbances. Patient reports history of severe depressive episodes in the past that she had symptoms of severe depression, lack of motivation, pleasure, and feeling hopeless and suicidal. She reports previous suicidal attempt 4 years ago. Patient denies any current severe depression symptoms and he denies feeling hopeless or suicidal. Patient denies any current or previous symptoms of yajaira including symptoms of euphoric mood, grandiosity, lack need to sleep due to unusual increase in activities, or irrational/impulsive behavior. She denies any current psychotic symptoms including hallucinations, paranoid ideation, or delusions, but reports history of hearing voices in the past mainly was voices of friends and family members assuring her and telling her good things about herself. She reports history of paranoid ideation in the past. Patient reports for most of her life feels severe unremitting anxiety, always worried out of proportion to the situations. She admits for always has racing thoughts and feels very tense. Patient reports physical symptoms of anxiety including racing heart, stomach cramps, sweating and twitching. Panic attacks was reported by the patient as "not currently but happened in the past". Patient reports having social phobia and avoidance social interactions. In regard of PTSD symptoms; patient denies symptoms of flashbacks, nightmares and intrusive thoughts related to prior psychological traumas. Patient denies any history of self-injurious behavior, but reports previous suicidal attempt 4 years ago. PAST PSYCHIATRIC HISTORY: Previous diagnoses: Depression and anxiety disorders Previous psychiatric hospitalizations: Denies Previous suicide attempts: one time 4 years ago by overdose on medications. Previous outpatient psychiatric treatment: Reports used to see a therapist and psychiatrist at [facility] in the past with the last time seen by psychiatrist 6 years ago. Current psychiatric medications: She is currently receiving [facility]. She is currently receiving Lexapro 20 mg for depression and on methadone maintenance treatment 65 mg daily. Previous medication trials: She couldn't recall previous psychiatric medications.. SUBSTANCE ABUSE HISTORY: Alcohol: Reports history of heavy alcohol drinking late teens and early 20s. Currently reports occasional drinking that she could have 1-2 drinks every month or maybe less. Opioid: Started to use heroin at her early 20s and escalated use up to 1-2 g daily by intravenous route. She was able to achieve sobriety few times with the help of Suboxone treatment and lately she had a relapse on heroin last November. Started on methadone maintenance treatment since January of last year and the highest dose she was on was 80 mg. She is currently on 65 mg methadone. Cocaine/ other stimulants: Reports history of heavy use of methamphetamine including IV use in her mid 20s. Cannabis: Reports is smoking marijuana occasionally. Reports previous inpatient substance use disorder treatment including rehab centers with the last time at rehab was last summer. Social History: Housing: Currently lives with her mother and stepfather. Patient never and has no children. She is currently unemployed. Education: Patient reports attaining an educational level of GED. History of psychological trauma:Denies FAMILY HISTORY: Psychiatric Illness: Depression at both her mother and father side of the family . Substance abuse: Father is alcoholic. Completed Suicides: Denies. Medical History: Denies MENTAL STATUS EVALUATION: Appearance: Appears stated age, fairly groomed, average body built, and no specific features. Gait/ posture: Steady gait, normal arm swinging, no abnormal movements, with relaxed posture. Attitude and Behavior: cooperative, related to the interviewer in socially accepted manner, fair eye contact during course of interview. Motor Activity: normal psychomotor activity. Speech: spontaneous, normal rate, rhythm, and articulation. normal volume. not pressured. Language: Articulating, naming objects and repeat phrases. Mood: "depressed" Affect: Restricted. Thought process: Linear, goal-directed. Association: Intact. Thought content: No current delusions, Denies suicidal thoughts, Denies homicidal thoughts, Denies intentions, or plans. Perception: Denies any current hallucinations and not responding to internal stimuli Alertness: No impairment. Orientation: Oriented to time, person, place and situation. Insight regarding psychiatric condition: fair Judgment regarding daily activities and social situation: fair Impulse control: fair Strengths: Family support- mother. Stable general medical condition. Challenges: Poor coping skills. Limited access to psychiatric treatment. Allergies Allergy/AdvReac Type Severity Reaction Status Date / Time amoxicillin Allergy Rash/Hives Verified 01/25/20 13:16 Vital Signs Temp 98.2 F 01/26/20 06:56 Pulse 61 01/26/20 06:56 Resp 14 01/26/20 06:56 BP 112/61 01/26/20 06:56 Pulse Ox 100 01/25/20 12:40 Intake & Output 01/25/20 01/26/20 01/26/20 17:59 06:59 18:59 Weight 76.1 kg Review of Lab results: Laboratory Last Values WBC 4.0 k/uL (3.8-10.6) 01/25/20 00:17 RBC 4.56 m/uL (4.30-5.90) 01/25/20 00:17 Hgb 13.6 gm/dL (13.0-17.5) 01/25/20 00:17 Hct 40.7 % (39.0-53.0) 01/25/20 00:17 MCV 89.1 fL (80.0-100.0) 01/25/20 00:17 MCH 29.9 pg (25.0-35.0) 01/25/20 00:17 MCHC 33.5 g/dL (31.0-37.0) 01/25/20 00:17 RDW 12.9 % (11.5-15.5) 01/25/20 00:17 Plt Count 159 k/uL (150-450) 01/25/20 00:17 Neutrophils % (Manual) 64 % 01/25/20 00:17 Band Neutrophils % 5 % 01/25/20 00:17 Lymphocytes % (Manual) 24 % 01/25/20 00:17 Monocytes % (Manual) 6 % 01/25/20 00:17 Eosinophils % (Manual) 1 % 01/25/20 00:17 Neutrophils # (Manual) 2.70 k/uL (1.3-7.7) 01/25/20 00:17 Lymphocytes # (Manual) 0.96 k/uL (1.0-4.8) L 01/25/20 00:17 Monocytes # (Manual) 0.24 k/uL (0-1.0) 01/25/20 00:17 Eosinophils # (Manual) 0.04 k/uL (0-0.7) 01/25/20 00:17 Nucleated RBCs 0 /100 WBC (0-0) 01/25/20 00:17 Manual Slide Review Performed 01/25/20 00:17 Reactive Lymphocytes 01/25/20 00:17 Sodium 136 mmol/L (137-145) L 01/26/20 07:47 Potassium 4.1 mmol/L (3.5-5.1) 01/26/20 07:47 Chloride 100 mmol/L (98-107) 01/26/20 07:47 Carbon Dioxide 30 mmol/L (22-30) 01/26/20 07:47 Anion Gap 6 mmol/L 01/26/20 07:47 BUN 9 mg/dL (9-20) 01/26/20 07:47 Creatinine 0.69 mg/dL (0.66-1.25) 01/26/20 07:47 Est GFR (CKD-EPI)AfAm >90 (>60 ml/min/1.73 sqM) 01/26/20 07:47 Est GFR (CKD-EPI)NonAf >90 (>60 ml/min/1.73 sqM) 01/26/20 07:47 Glucose 98 mg/dL (74-99) 01/26/20 07:47 Calcium 8.6 mg/dL (8.4-10.2) 01/26/20 07:47 Total Bilirubin 0.2 mg/dL (0.2-1.3) 01/25/20 00:17 AST 26 U/L (17-59) 01/25/20 00:17 ALT 12 U/L (4-49) 01/25/20 00:17 Alkaline Phosphatase 52 U/L (38-126) 01/25/20 00:17 Total Protein 6.7 g/dL (6.3-8.2) 01/25/20 00:17 Albumin 3.8 g/dL (3.5-5.0) 01/25/20 00:17 Urine Color Yellow 01/24/20 23:25 Urine Appearance Clear (Clear) 01/24/20 23:25 Urine pH 6.0 (5.0-8.0) 01/24/20 23:25 Ur Specific [place] 1.026 (1.001-1.035) 01/24/20 23:25 Urine Protein 1+ (Negative) H 01/24/20 23:25 Urine Glucose (UA) Negative (Negative) 01/24/20 23:25 Urine Ketones Negative (Negative) 01/24/20 23:25 Urine Blood Negative (Negative) 01/24/20 23:25 Urine Nitrite Negative (Negative) 01/24/20 23:25 Urine Bilirubin Negative (Negative) 01/24/20 23:25 Urine Urobilinogen 2.0 mg/dL (<2.0) 01/24/20 23:25 Ur Leukocyte Esterase Negative (Negative) 01/24/20 23:25 Urine RBC <1 /hpf (0-5) 01/24/20 23:25 Urine WBC 1 /hpf (0-5) 01/24/20 23:25 Ur Squamous Epith Cells <1 /hpf (0-4) 01/24/20 23:25 Urine Bacteria Rare /hpf (None) H 01/24/20 23:25 Urine Mucus Occasional /hpf (None) H 01/24/20 23:25 Urine Opiates Screen Not Detected (NotDetected) 01/24/20 23:25 Ur Oxycodone Screen Not Detected (NotDetected) 01/24/20 23:25 Urine Methadone Screen Detected (NotDetected) H 01/24/20 23:25 Ur Propoxyphene Screen Not Detected (NotDetected) 01/24/20 23:25 Ur Barbiturates Screen Not Detected (NotDetected) 01/24/20 23:25 U Tricyclic Antidepress Not Detected (NotDetected) 01/24/20 23:25 Ur Phencyclidine Scrn Not Detected (NotDetected) 01/24/20 23:25 Ur Amphetamines Screen Detected (NotDetected) H 01/24/20 23:25 U Methamphetamines Scrn Detected (NotDetected) H 01/24/20 23:25 U Benzodiazepines Scrn Detected (NotDetected) H 01/24/20 23:25 Urine Cocaine Screen Not Detected (NotDetected) 01/24/20 23:25 U Marijuana (THC) Screen Detected (NotDetected) H 01/24/20 23:25 Assessment: Unspecified mood disorder. Generalized anxiety disorder. Opioid use disorder, severe in early remission on agonist therapy. Methamphetamine use disorder, moderate, in sustained remission. TREATMENT PLAN/RECOMMENDATIONS: Medical Decision making: The patient presented with severe mood instability, anger, agitation and threatening others. The patient could be risk to hurt self and/or others if she is not in the inpatient setting. The patient's psychiatric symptoms are not stable and she needs further management of psychiatric medications and further planning for discharge. Therefore, inpatient level of care is needed. Continue the patient inpatient for safety. Continue the patient under 15 minutes safe check for safety. Continue treatment of mood disorder. Psych education regarding diagnosis, and treatment option. The patient will also be provided with individual therapy, group therapy, substance abuse counseling, gain insight, and coping skills. Consider medical consultation if any acute medical issue arise. Medications: Continue Lexapro 20 mg daily for depression and anxiety. Start Abilify 2 mg daily as a mood stabilizer. Clonidine when necessary for opiate withdrawal symptoms. Symptomatic treatment for opiate withdrawal symptoms. The patient will be assessed on daily basis for his depression, suicidal ideation, and will be discharged back to his outpatient mental health provider upon stabilization. EXPECTED LENGTH OF STAY: 5 days. 01/26/20 11:22
[2020-01-26] MEDS: ESCITALOPRAM 20 MG TAB PO SCH (12:47)
[2020-01-26] MEDS: ARIPiprazole 2 MG TAB PO SCH (12:47)
[2020-01-26] MEDS: cloNIDine HCL 0.1 MG TAB PO PRN (12:49)
[2020-01-27] MEDS: NICOTINE 7MG/24HR PATCH TRANSDERM SCH (08:34)
[2020-01-27] MEDS: ARIPiprazole 2 MG TAB PO SCH (08:35)
[2020-01-27] MEDS: ESCITALOPRAM 20 MG TAB PO SCH (08:35)
[2020-01-27] MEDS: cloNIDine HCL 0.1 MG TAB PO PRN (09:23)
[2020-01-27] MEDS: METHADONE 10 MG TAB PO SCH (09:23)
--- NOTE | 2020-01-27 15:09 | P.PN ---
Subjective Progress Note Date: 01/27/20 Principal diagnosis: Adjustment disorder with disturbance of mood and conduct, rule out major depressive disorder, opiate use disorder severe on axis therapy, methamphetamine use disorder moderate in sustained remission, borderline personality disorder I reviewed the medical record, interviewed the patient and discuss his treatment and treatment plan during team meeting. He is a 29-year-old single male who identifies himself as a female. He presented to the psychiatric unit acutely distressed. Apparently on the day of admission he had an argument with his mother then when she threw his mother's phone. He described a history of mood lability, uncontrolled anger and periods of agitation. On day of admission the argument began with his request his mother drives him to a friend's home. He became increasingly angry during the argument that ensued because she was not willing to drive him. His history is significant for opiate use disorder and is currently enrolled in a methadone treatment program at [place] receives 65 mg daily. He also meets with a therapist with the program on a weekly basis. In the morning he was acutely distressed and describing opiate withdrawal symptoms including irritability, dysphoria, nausea, muscle aches, sweating and restlessness. He denied having diarrhea or vomiting. After receiving 30 mg methadone his mood improved. We talked about the circumstances that led to this hospitalization. His mood has improved since admission. He's longer angry or depressed. He noticed a normalization of his mood after he started Abilify. He denied having thoughts of or suicide. We discussed treatment options and he expressed an interest in dialectic behavioral therapy Objective - Vital Signs Vital signs: Vital Signs Temp 97.6 F 01/27/20 03:15 Pulse 100 01/27/20 09:25 Resp 16 01/27/20 03:15 BP 137/81 01/27/20 09:25 Pulse Ox 100 01/25/20 12:40 Intake & Output 01/26/20 01/27/20 01/27/20 18:59 06:59 18:59 Weight 76.1 kg - Exam He presented as a tall thin 29-year-old male with long dark hair. He is wearing a women's stress and likings. He made eye contact and attended the interview. He had a blunted facial expression. He showed psychomotor retardation but no abnormal movements. His affect was blunted but stable and appropriate. He denied suicidal ideation, wishes or homicidal ideation. He denied feeling hopeless, helpless or worthless. He ruminated about the circumstances that led to this hospitalization his frequent difficulties with controlling his anger. He did not express ideas reference, paranoid ideation or delusions. His thinking was abstract and associations were coherent and logical. He denied hallucinations did not appear to be responding to internal stimuli. - Labs CBC & Chem 7: 01/25/20 00:17 01/26/20 07:47 Assessment and Plan Assessment: 29-year-old male with history of opiate use disorder and active his therapy. He has sexual identity issues along with intense and unstable interpersonal relationships, affective instability and periods of intense and uncontrolled rage. His mood as improve from admission Plan: Continue Lexapro 20 mg daily, Abilify 2 mg daily and methadone 30 mg daily. Co ntinue safety precautions. Encourage participation in therapeutic groups and activities. Evaluate clinical status response to treatment daily basis. Refer to a dialectic behavioral therapy program.
[2020-01-28] MEDS: NICOTINE 7MG/24HR PATCH TRANSDERM SCH (08:26)
[2020-01-28] MEDS: ESCITALOPRAM 20 MG TAB PO SCH (08:26)
[2020-01-28] MEDS: ARIPiprazole 2 MG TAB PO SCH (08:27)
[2020-01-28] MEDS: METHADONE 10 MG TAB PO SCH (08:27)
--- NOTE | 2020-01-28 15:17 | P.PN ---
Subjective Progress Note Date: 01/28/20 Principal diagnosis: Adjustment disorder with disturbance of mood and conduct, rule out major depressive disorder, opiate use disorder severe on axis therapy, methamphetamine use disorder moderate in sustained remission, borderline personality disorder I reviewed the medical record, interviewed the patient and discuss his treatment and treatment plan during team meeting. His only complaint was feeling "tired". He denied feeling depressed or having thoughts of suicide. He denied experiencing uncontrollable anxiety He denied opiate withdrawal symptoms. He spoken with his motherseveral times since admission. He alleged that they have reconciled and he may return home. We again discussed aftercare services Center remains interested and referral for dialectical behavioral therapy. Objective - Vital Signs Vital signs: Vital Signs Temp 98.1 F 01/28/20 06:53 Pulse 57 L 01/28/20 06:53 Resp 17 01/28/20 06:53 BP 114/62 01/28/20 06:53 Pulse Ox 98 01/28/20 06:53 - Exam He presented as a casually groomed 29-year-old bespectacled adult male who was w earing women's clothing. He made eye contact and attended to interview. He had a sad facial expression. He was alert and oriented to person, place and time. His movements and speech were slow. He had no articulation difficulties. He denied suicidal ideation or wishes. He denied homicidal ideation. He denied feeling hopeless, helpless or worthless. He did not express paranoid ideation, ideas reference or delusional thoughts. His thinking was abstract and associations were coherent and logical. He denied hallucinations and did not appear to be responding to internal stimuli. - Labs CBC & Chem 7: 01/25/20 00:17 01/26/20 07:47 Assessment and Plan Assessment: He is much improved from admission. He is not having opiate withdrawal symptoms, overwhelming anxiety or uncontrollable emotional distress. He denied suicidal or homicidal ideation, intent or plan. Plan: Continue current meds-Abilify 2 mg daily, Lexapro 20 mg daily and Desyrel 50 mg at bedtime when necessary for sleep. dockworker to coordinate family meeting and arrange screening for [facility] services. Recommend dialectic behavioral therapy. He will return to the methadone program at [place]. Plan for discharge on 01/29/2020.
[2020-01-29 07:08] VITALS: BP 115/68; PULSE 65; RESP 16; TEMP 97.8
[2020-01-29] MEDS: METHADONE 10 MG TAB PO SCH (08:34)
[2020-01-29] MEDS: ESCITALOPRAM 20 MG TAB PO SCH (08:34)
[2020-01-29] MEDS: ARIPiprazole 2 MG TAB PO SCH (08:34)
[2020-01-29] MEDS: NICOTINE 7MG/24HR PATCH TRANSDERM SCH (08:34)
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
== END 2020-01-29 15:27 | disposition home or self-care (01) | DRG 883 ==
LOC: EC 21:48 → 3MHU 01-25 12:30
PROVIDERS: ADMIT Psychiatry & Neurology Psychiatry; ATTEND Psychiatry & Neurology Psychiatry
DX: F60.3 Borderline personality disorder (principal); F15.259 Other stimulant dependence with stimulant-induced psychotic disorder, unspecified; F11.23 Opioid dependence with withdrawal; F13.10 Sedative, hypnotic or anxiolytic abuse, uncomplicated; Z71.6 Tobacco abuse counseling; F40.10 Social phobia, unspecified; F41.0 Panic disorder [episodic paroxysmal anxiety]; F41.1 Generalized anxiety disorder; F43.10 Post-traumatic stress disorder, unspecified; F20.9 Schizophrenia, unspecified; F43.25 Adjustment disorder with mixed disturbance of emotions and conduct; F64.9 Gender identity disorder, unspecified; Z79.899 Other long term (current) drug therapy; Z81.4 Family history of other substance abuse and dependence; Z81.8 Family history of other mental and behavioral disorders; Z91.5 Personal history of self-harm; Z82.49 Family history of ischemic heart disease and other diseases of the circulatory system; Z88.0 Allergy status to penicillin
CPT/HCPCS: 36415; 80048; 80053; 80306; 81001; 82075; 85025; 99285

== ENCOUNTER 2020-03-12 20:21 | Emergency (ER) | payer OTHER ==
[2020-03-12 21:02] LABS: Urn Cannabinoid Scrn Detected (NotDetected)
[2020-03-12 21:03] LABS: Amphetamine Screen,Urine Not Detected (NotDetected); Barbiturate Screen,Urine Not Detected (NotDetected); Benzodiazepines Screen,Urine Not Detected (NotDetected); Cocaine Screen,Urine Not Detected (NotDetected); Methadone Screen, Urine Detected (NotDetected); Opiate Screen,Urine Not Detected (NotDetected); Oxycodone Screen, Urine Not Detected (NotDetected); Phencyclidine Screen,Urine Not Detected (NotDetected); Tricyclic Antidepressant,Urine Not Detected (NotDetected)
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
[2020-03-12 22:47] VITALS: BP 128/70; PULSE 73; RESP 18; TEMP 97
== END 2020-03-12 22:47 | disposition home or self-care (01) ==
LOC: EC 20:21
DX: F39 Unspecified mood [affective] disorder (principal); F17.200 Nicotine dependence, unspecified, uncomplicated; Z88.0 Allergy status to penicillin
CPT/HCPCS: 80306; 82075; 99284

== ENCOUNTER 2020-04-06 14:55 | Emergency (ER) | payer OTHER ==
[2020-04-06 15:01] VITALS: RESP 18
--- NOTE | 2020-04-06 17:02 | ED ---
General Adult HPI - General Chief complaint: Psychiatric Symptoms Stated complaint: psych evaluation Time Seen by Provider: 04/06/20 15:03 Source: patient, RN notes reviewed Mode of arrival: ambulatory Limitations: no limitations - History of Present Illness Initial comments: 29-year-old male with a past medical history of schizophrenia, anxiety, depres jeanne presents to the emergency department for a chief complaint of psychiatric evaluation. Patient goes by "she." Patient is trying to go to [facility] for heroin, cocaine, and meth drug abuse. States that she was told by [facility] she needed a psychiatric evaluation through the emergency department before they accepted her into their program. She states that she is not sure why this is t he case. She denies suicidal thoughts. States she has been more emotional lately. Mother states patient is seemingly more theatric and has been talking to herself. Patient denies auditory or visual hallucinations. Patient denies any thoughts of harming herself. Denies any suicidal thoughts. Denies other harming anyone else. Patient has no other complaints at this time including shortness of breath, chest pain, abdominal pain, nausea or vomiting, headache, or visual changes. - Related Data Previous Rx's Medication Instructions Recorded RX: ARIPiprazole [Abilify] 2 mg PO DAILY #30 tab 01/29/20 RX: Escitalopram [Lexapro] 20 mg PO DAILY #30 tab 01/29/20 RX: Nicotine 7Mg/24Hr Patch 1 patch TRANSDERM DAILY #28 patch 01/29/20 [Habitrol] Allergies Allergy/AdvReac Type Severity Reaction Status Date / Time amoxicillin Allergy Rash/Hives Verified 04/06/20 15:01 Review of Systems ROS Statement: Those systems with pertinent positive or pertinent negative responses have been documented in the HPI. ROS Other: All systems not noted in ROS Statement are negative. Past Medical History Past Medical History: No Reported History History of Any Multi-Drug Resistant Organisms: None Reported Past Surgical History: Appendectomy Past Anesthesia/Blood Transfusion Reactions: No Reported Reaction Past Psychological History: Anxiety, Depression, Schizophrenia Smoking Status: Current every day smoker Past Alcohol Use History: Rare Past Drug Use History: Cocaine, Heroin - Past Family History Mother Additional Family Medical History / Comment(s): heart disease Father Family Medical History: No Reported History General Exam Limitations: no limitations General appearance: alert, in no apparent distress Head exam: Present: atraumatic, normocephalic, normal inspection Eye exam: Present: normal appearance, PERRL, EOMI. Absent: scleral icterus, conjunctival injection, periorbital swelling ENT exam: Present: normal exam, mucous membranes moist Neck exam: Present: normal inspection. Absent: tenderness, meningismus, lymphadenopathy Respiratory exam: Present: normal lung sounds bilaterally. Absent: respiratory distress, wheezes, rales, rhonchi, stridor Cardiovascular Exam: Present: regular rate, normal rhythm, normal heart sounds. Absent: systolic murmur, diastolic murmur, rubs, gallop, clicks GI/Abdominal exam: Present: soft, normal bowel sounds. Absent: distended, tenderness, guarding, rebound, rigid Neurological exam: Present: alert Psychiatric exam: Present: normal affect, normal mood Course Vital Signs 04/06/20 14:57 Temperature 99.5 F Pulse Rate 116 H Respiratory 18 Rate Blood Pressure 126/82 O2 Sat by Pulse 97 Oximetry Medical Decision Making - Medical Decision Making Patient was evaluated by [facility]. Psychiatrist is currently not recommending inpatient treatment. EPS nurse discussed this with [facility]. They will fax clearance over to [facility]. Patient will go there tomorrow for intake. Sh e will return here for worsening symptoms. Disposition Clinical Impression: Polysubstance abuse Disposition: HOME SELF-CARE Condition: Good Instructions (If sedation given, give patient instructions): Polysubstance Abuse (ED) Additional Instructions: Please go to [facility] tomorrow for intake. If you have any worsening symptoms return to the emergency room. Is patient prescribed a controlled substance at d/c from ED?: No Referrals: Felix Long DO [Primary Care Provider] - 1-2 days Time of Disposition: 17:37
[2020-04-06 18:03] VITALS: BP 137/94; PULSE 100; TEMP 98.7
== END 2020-04-06 18:05 | disposition home or self-care (01) ==
LOC: EC 14:55
DX: F14.10 Cocaine abuse, uncomplicated (principal); F11.10 Opioid abuse, uncomplicated; F17.200 Nicotine dependence, unspecified, uncomplicated; Z88.0 Allergy status to penicillin
CPT/HCPCS: 82075; 99284

== ENCOUNTER 2022-11-27 09:25 | Emergency (ER) | payer OTHER ==
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
[2022-11-27 11:04] LABS: Appearance,Urine Clear (Clear); Bilirubin,Urine Negative (Negative); Blood,Urine Negative (Negative); Color,Urine Colorless; Glucose,Urine (UA) Negative (Negative); Ketones,Urine Negative (Negative); Leukocyte Esterase,Urine Moderate (Negative); Nitrite,Urine Negative (Negative); PH, Urine 6.5 (5.0-8.0); Protein,Urine Negative (Negative); RBC,Urine 2 /hpf (0-5); Specific Gravity,Urine 1.003 (1.001-1.035); Squamous Epithelial Cell,Urine <1 /hpf (0-4); Urobilinogen,Urine <2.0 mg/dL (<2.0); WBC,Urine <1 /hpf (0-5)
[2022-11-27 12:27] VITALS: BP 117/73; PULSE 79; RESP 18; TEMP 98
[2022-11-28 15:08] LABS: HIV 2 AB Non-Reactive (Non-Reactive); HIV AB P24 Non-Reactive (Non-Reactive); HIV P24 AG Non-Reactive (Non-Reactive)
== END 2022-11-27 12:26 | disposition home or self-care (01) ==
LOC: EC 09:25
DX: Z20.2 Contact with and (suspected) exposure to infections with a predominantly sexual mode of transmission (principal); F41.9 Anxiety disorder, unspecified; F32.A Depression, unspecified; F14.90 Cocaine use, unspecified, uncomplicated; F11.90 Opioid use, unspecified, uncomplicated; Z88.0 Allergy status to penicillin
CPT/HCPCS: 36415; 81001; 86592; 86780; 87390; 87491; 87591; 99283

== ENCOUNTER 2023-03-22 12:41 | Emergency (ER) | payer OTHER ==
[2023-03-22 12:45] VITALS: BP 123/81; PULSE 109; RESP 20; TEMP 98.3
--- NOTE | 2023-03-22 13:14 | ED ---
General Adult HPI - General Chief complaint: Recheck/Abnormal Lab/Rx Stated complaint: want to get tested Time Seen by Provider: 03/22/23 12:55 Source: patient, RN notes reviewed Mode of arrival: ambulatory Limitations: no limitations - History of Present Illness Initial comments: 32-year-old male presents emergency Department requesting HIV, CT testing. Patient states he had exposure yesterday. Patient states he he had an encounter with a known HIV positive patient. Patient states he has no history otherwise does have history of syphilis. Patient states he wants HIV postexposure. - Related Data Previous Rx's Medication Instructions Recorded ARIPiprazole [Abilify] 2 mg PO DAILY #30 tab 01/29/20 Escitalopram [Lexapro] 20 mg PO DAILY #30 tab 01/29/20 Nicotine 7Mg/24Hr Patch [Habitrol] 1 patch TRANSDERM DAILY #28 patch 01/29/20 Dolutegravir Sodium [Tivicay] 50 mg PO DAILY #28 tab 03/22/23 Emtricitabine/Tenofovir (Tdf) 1 tab PO DAILY #28 tab 03/22/23 [Truvada 200 mg-300 mg Tablet] Allergies Allergy/AdvReac Type Severity Reaction Status Date / Time amoxicillin Allergy Rash/Hives Verified 04/06/20 15:01 Review of Systems ROS Statement: Those systems with pertinent positive or pertinent negative responses have been documented in the HPI. ROS Other: All systems not noted in ROS Statement are negative. Past Medical History Past Medical History: No Reported History History of Any Multi-Drug Resistant Organisms: None Reported Past Surgical History: Appendectomy Past Anesthesia/Blood Transfusion Reactions: No Reported Reaction Past Psychological History: Anxiety, Depression, Schizophrenia Smoking Status: Vaper Past Alcohol Use History: Rare Past Drug Use History: Cocaine, Heroin - Past Family History Mother Additional Family Medical History / Comment(s): heart disease Father Family Medical History: No Reported History General Exam Limitations: no limitations General appearance: alert, in no apparent distress Head exam: Present: atraumatic, normocephalic, normal inspection Respiratory exam: Present: normal lung sounds bilaterally. Absent: respiratory distress, wheezes, rales, rhonchi, stridor Cardiovascular Exam: Present: regular rate, normal rhythm, normal heart sounds. Absent: systolic murmur, diastolic murmur, rubs, gallop, clicks Course Vital Signs 03/22/23 12:42 Temperature 98.3 F Pulse Rate 109 H Respiratory 20 Rate Blood Pressure 123/81 O2 Sat by Pulse 99 Oximetry Medical Decision Making - Medical Decision Making Was pt. sent in by a medical professional or institution (KATHERIN Castellanos, CHOPPER GUN OPERATOR, urgent care, hospital, or group home...) When possible be specific @ -No Did you speak to anyone other than the patient for history (EMS, parent, family, police, friend...)? What history was obtained from this source @ -No Did you review nursing and triage notes (agree or disagree)? Why? @ -I reviewed and agree with nursing and triage notes Were old charts reviewed (outside hosp., previous admission, EMS record, old EKG, old radiological studies, urgent care reports/EKG's, group home records)? Report findings @ -No old charts were reviewed Differential Diagnosis (chest pain, altered mental status, abdominal pain women, abdominal pain men, vaginal bleeding, weakness, fever, dyspnea, syncope, headache, dizziness, GI bleed, back pain, seizure, CVA, palpatations, mental health, musculoskeletal)? @ -STD testing, STD exposure EKG interpreted by me (3pts min.). @ -None X-rays interpreted by me (1pt min.). @ -None done CT interpreted by me (1pt min.). @ -None done U/S interpreted by me (1pt. min.). @ -None done What testing was considered but not performed or refused? (CT, X-rays, U/S, labs)? Why? @ -None What meds were considered but not given or refused? Why? @ -None Did you discuss the management of the patient with other professionals (professionals i.e. KATHERIN Castellanos, CHOPPER GUN OPERATOR, lab, RT, psych nurse, social work assistant, general road supervisor, teacher, chief safety officer, casey saw operator)? Give summary @ -No Was smoking cessation discussed for >3mins.? @ -No Was critical care preformed (if so, how long)? @ -No Were there social determinants of health that impacted care today? How? (Homelessness, low income, unemployed, alcoholism, drug addiction, transportation, low edu. Level, literacy, decrease access to med. care, assisted, rehab)? @ -No Was there de-escalation of care discussed even if they declined (Discuss DNR or withdrawal of care, Hospice)? DNR status @ -No What co-morbidities impacted this encounter? (DM, HTN, Smoking, COPD, CAD, Cancer, CVA, ARF, Chemo, Hep., AIDS, mental health diagnosis, sleep apnea, morbid obesity)? @ -None Was patient admitted / discharged? Hospital course, mention meds given and route, prescriptions, significant lab abnormalities, going to OR and other pertinent info. @ -Discharge patient was requesting HIV postexposure treatment patient requested STD testing. Undiagnosed new problem with uncertain prognosis? @ -No Drug Therapy requiring intensive monitoring for toxicity (Heparin, Nitro, Insulin, Cardizem)? @ -No Were any procedures done? @ -No Diagnosis/symptom? @ -STD exposure Acute, or Chronic, or Acute on Chronic? @ -Acute Uncomplicated (without systemic symptoms) or Complicated (systemic symptoms)? @ -Uncomplicated Side effects of treatment? @ -No Exacerbation, Progression, or Severe Exacerbation? @ -No Poses a threat to life or bodily function? How? (Chest pain, [place], [place], pneumonia, PE, COPD, DKA, ARF, appy, cholecystitis, CVA, Diverticulitis, Homicidal, Salomon icidal, threat to staff... and all critical care pts) @ -No Disposition Clinical Impression: STD exposure Disposition: HOME SELF-CARE Condition: Stable Instructions (If sedation given, give patient instructions): HIV Transmission (ED) Additional Instructions: Please return to the Emergency Department if symptoms worsen or any other concerns. Prescriptions: Dolutegravir Sodium [Tivicay] 50 mg PO DAILY #28 tab Emtricitabine/Tenofovir (Tdf) [Truvada 200 mg-300 mg Tablet] 1 tab PO DAILY #28 tab Is patient prescribed a controlled substance at d/c from ED?: No Referrals: Felix Long DO [Primary Care Provider] - 1-2 days Time of Disposition: 13:08
[2023-03-22 23:32] LABS: HIV 2 AB Non-Reactive (Non-Reactive); HIV AB P24 Non-Reactive (Non-Reactive); HIV P24 AG Non-Reactive (Non-Reactive)
[2023-03-23 15:46] LABS: C. trachomatis,PCR Negative (Neg,Equiv); Chlamydia trachomatis Source Urine; N. gonorrhoeae,PCR Negative (Neg,Equiv); Neisseria Source Urine
== END 2023-03-22 13:31 | disposition home or self-care (01) ==
LOC: EC 12:41
DX: Z20.6 Contact with and (suspected) exposure to human immunodeficiency virus [HIV] (principal); F17.290 Nicotine dependence, other tobacco product, uncomplicated; F14.90 Cocaine use, unspecified, uncomplicated; F11.90 Opioid use, unspecified, uncomplicated; Z88.0 Allergy status to penicillin
CPT/HCPCS: 36415; 86592; 86780; 87390; 87491; 87591; 99283

== ENCOUNTER 2024-03-25 13:50 | Emergency (ER) | payer OTHER ==
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
[2024-03-25 14:30] VITALS: BP 140/74; PULSE 83; RESP 18; TEMP 98.1
[2024-03-25] MEDS: IBUPROFEN 600 MG TAB PO STA (15:05)
[2024-03-25] MEDS: ACETAMINOPHEN TAB 500 MG TAB PO STA (15:06)
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
== END 2024-03-25 18:32 | disposition home or self-care (01) ==
LOC: EDSEX → EC 13:50
DX: S06.0XAA Concussion with loss of consciousness status unknown, initial encounter (principal); R40.2410 Glasgow coma scale score 13-15, unspecified time; F17.290 Nicotine dependence, other tobacco product, uncomplicated; F14.90 Cocaine use, unspecified, uncomplicated; Y04.0XXA Assault by unarmed brawl or fight, initial encounter
CPT/HCPCS: 70450; 70486; 72125; 99284

== ENCOUNTER 2025-05-09 12:26 | Emergency (ER) | payer OTHER ==
[2025-05-09 13:14] VITALS: RESP 18
--- NOTE | 2025-05-09 13:40 | ED ---
General Adult HPI - General Chief complaint: Anxiety Stated complaint: Anxiety Time Seen by Provider: 05/09/25 12:41 Source: patient, RN notes reviewed Mode of arrival: ambulatory Limitations: no limitations - History of Present Illness Initial comments: 34-year-old male to female patient presents to the emergency department for evaluation of anxiety. The patient states that she was feeling anxious yesterday and because of this took a long drive and long walk last night. She states that this made her brother concerned and he advised her that she should come to the emergency department. She does note feeling anxious and overwhelmed. She denies any SI or HI. She does note that she has a spot on her cheek that she is concerned about. Denies any recent fever, chills, brain fog, nausea, vomiting. - Related Data Previous Rx's Medication Instructions Recorded ARIPiprazole [Abilify] 2 mg PO DAILY #30 tab 01/29/20 Escitalopram [Lexapro] 20 mg PO DAILY #30 tab 01/29/20 Nicotine 7Mg/24Hr Patch [Habitrol] 1 patch TRANSDERM DAILY #28 patch 01/29/20 Dolutegravir Sodium [Tivicay] 50 mg PO DAILY #28 tab 03/22/23 Emtricitabine/Tenofovir (Tdf) 1 tab PO DAILY #28 tab 03/22/23 [Truvada 200 mg-300 mg Tablet] Allergies Allergy/AdvReac Type Severity Reaction Status Date / Time No Known Allergies Allergy Verified 05/09/25 12:30 Review of Systems ROS Statement: Those systems with pertinent positive or pertinent negative responses have been documented in the HPI. ROS Other: All systems not noted in ROS Statement are negative. Past Medical History Past Medical History: No Reported History History of Any Multi-Drug Resistant Organisms: None Reported Past Surgical History: Appendectomy Past Anesthesia/Blood Transfusion Reactions: No Reported Reaction Past Psychological History: Anxiety, Depression, Schizophrenia Smoking Status: Vaper Past Alcohol Use History: Rare Past Drug Use History: Cocaine, Heroin, Methamphetamine, Opiates - Past Family History Mother Additional Family Medical History / Comment(s): heart disease Father Family Medical History: No Reported History General Exam Limitations: no limitations General appearance: alert, in no apparent distress Head exam: Present: atraumatic, normocephalic, normal inspection Eye exam: Present: normal appearance, PERRL, EOMI. Absent: scleral icterus, conjunctival injection, periorbital swelling ENT exam: Present: normal exam, mucous membranes moist Neck exam: Present: normal inspection. Absent: tenderness, meningismus, lymphadenopathy Respiratory exam: Present: normal lung sounds bilaterally. Absent: respiratory distress, wheezes, rales, rhonchi, stridor Cardiovascular Exam: Present: normal rhythm, tachycardia, normal heart sounds. Absent: systolic murmur, diastolic murmur, rubs, gallop, clicks GI/Abdominal exam: Present: soft. Absent: distended, tenderness, guarding, r ebound, rigid Extremities exam: Present: normal inspection, full ROM, normal capillary refill. Absent: tenderness, pedal edema, joint swelling, calf tenderness Neurological exam: Present: alert, oriented X3 Psychiatric exam: Present: normal affect, normal mood Skin exam: Present: warm, dry, normal color. Absent: intact Course Vital Signs 05/09/25 05/09/25 05/09/25 12:31 13:02 14:36 Temperature 97.8 F 98.1 F Pulse Rate 122 H 112 H Respiratory 20 18 18 Rate Blood Pressure 136/93 132/89 O2 Sat by Pulse 96 98 Oximetry Medical Decision Making - Medical Decision Making Was pt. sent in by a medical professional or institution (KATHERIN Castellanos, DRAFTER ([employer]) [employer], urgent care, hospital, or fpc...) When possible be specific @ -[No] Did you speak to anyone other than the patient for history (EMS, parent, family, police, friend...)? What history was obtained from this source @ -[No] Did you review nursing and triage notes (agree or disagree)? Why? @ -[I reviewed and agree with nursing and triage notes] Were old charts reviewed (outside hosp., previous admission, EMS record, old EKG, old radiological studies, urgent care reports/EKG's, fpc records)? Report findings @ -[No old charts were reviewed] Differential Diagnosis (chest pain, altered mental status, abdominal pain women, abdominal pain men, vaginal bleeding, weakness, fever, dyspnea, syncope, headache, dizziness, GI bleed, back pain, seizure, CVA, palpatations, mental health, musculoskeletal)? @ -[not applicable] EKG interpreted by me (3pts min.). @ -[None] X-rays interpreted by me (1pt min.). @ -[None done] CT interpreted by me (1pt min.). @ -[None done] U/S interpreted by me (1pt. min.). @ -[None done] What testing was considered but not performed or refused? (CT, X-rays, U/S, labs)? Why? @ -[None] What meds were considered but not given or refused? Why? @ -[None] Did you discuss the management of the patient with other professionals (professionals i.e. , PA, DRAFTER ([employer]) [employer], lab, RT, psych nurse, social media campaign manager, rubber tile floor layer, teacher, ethics officer, child welfare caseworker)? Give summary @ -[No] Was smoking cessation discussed for >3mins.? @ -[No] Was critical care preformed (if so, how long)? @ -[No] Were there social determinants of health that impacted care today? How? (Homelessness, low income, unemployed, alcoholism, drug addiction, transportation, low edu. Level, literacy, decrease access to med. care, [facility], rehab)? @ -[No] Was there de-escalation of care discussed even if they declined (Discuss DNR or withdrawal of care, Hospice)? DNR status @ -[No] What co-morbidities impacted this encounter? (DM, HTN, Smoking, COPD, CAD, Cancer, CVA, ARF, Chemo, Hep., AIDS, mental health diagnosis, sleep apnea, morbid obesity)? @ -[None] Was patient admitted / discharged? Hospital course, mention meds given and route, prescriptions, significant lab abnormalities, going to OR and other pertinent info. @ -[Discharge.] Undiagnosed new problem with uncertain prognosis? @ -[No] Drug Therapy requiring intensive monitoring for toxicity (Heparin, Nitro, Insulin, Cardizem)? @ -[No] Were any procedures done? @ -[No] Diagnosis/symptom? @ -[default] Acute, or Chronic, or Acute on Chronic? @ -[default] Uncomplicated (without systemic symptoms) or Complicated (systemic symptoms)? @ -[default] Side effects of treatment? @ -[No] Exacerbation, Progression, or Severe Exacerbation? @ -[No] Poses a threat to life or bodily function? How? (Chest pain, USA, AR, pneumonia, PE, COPD, DKA, ARF, appy, cholecystitis, CVA, Diverticulitis, Homicidal, Suicidal, threat to staff... and all critical care pts) @ -[No] Disposition Clinical Impression: Acute anxiety Disposition: HOME SELF-CARE Condition: Stable Instructions (If sedation given, give patient instructions): Generalized Anxiety Disorder (ED) Additional Instructions: Please follow-up with your doctor. Return to the emergency department for new or worsening symptoms. Is patient prescribed a controlled substance at d/c from ED?: No Referrals: None,Stated [Primary Care Provider] - 1-2 days
[2025-05-09] MEDS: LORazepam 1 MG TAB PO STA (13:49)
[2025-05-09] MEDS: MUPIROCIN 2% OINT 22 GM TUBE TOPICAL STA (13:58)
[2025-05-09 14:37] VITALS: BP 132/89; PULSE 112; TEMP 98.1
== END 2025-05-09 14:50 | disposition home or self-care (01) ==
LOC: EC 12:26
DX: F41.9 Anxiety disorder, unspecified (principal); F17.290 Nicotine dependence, other tobacco product, uncomplicated
CPT/HCPCS: 99283